=== PATIENT | female | born 1980 | race Hispanic/Latino ===

== ENCOUNTER 2017-07-21 17:11 | Emergency (ER) | payer MEDICAID, MEDICARE ==
[~2017-07-21] VITALS: Ht 160 cm; Wt 86.2 kg
[~2017-07-21 17:11] MED LIST: ACC200C PO; ACHD5005 PO; AGM875T PO; AMOX500C2 PO; CEFD300C3 PO; CEPH500C PO; CIPR500T78 PO; FLT05NA16 NSEACH; HCTZ12.5T PO; HYDR-3583 PO; HYDR1TAB PO; IBP800T PO; IBUP400T22 PO; IBUP50DR PO; IBUP800T26 PO; LISI20TA PO; LSNP20T PO; MELO-195 PO; METH4TAB PO; METO100T5 PO; METO50TA2 PO; MPR22T TP; NAPR-243 PO; OFLO5DRO6 OT; ONDA8TAB9 PO; Oxycodone Hcl/Acetaminophen PO; PHEN200T27 PO; PRM25T PO; SERT100T8 PO; SERT25TA PO; SMTR50T PO; SULF-222 PO; SULF1TAB38 PO; TRAM50TA2 PO; TRM50T PO; ZLP10T PO; ZLP5T PO; ZOLP10TA5 PO; zoloft PO
--- OUTSIDE RECORDS SUMMARY | 2017-07-21 17:18 | XMS REPORT | Continuity of Care Document ---
Author Author [facility] Organization [facility] Address [facility] [address] [place] [address] Phone Unavailable Support Name Relationship Address Phone AGA BLANC DO Caregiver [address] [place] [address] MYRNA GIL Next Of Kin [address] [place], [place] [id number] Insurance Providers Payer Name Policy Number Subscriber Name Relationship Medicare [id number] Susan Camacho 18 Self / Same As Patient Medicaid Other [id number] Susan Camacho 18 Self / Same As Patient Advance Directives Directive Response Recorded Date/Time Advance Directives No 10/10/16 9:49am Living Will No 10/10/16 9:49am Health Care Proxy No 10/10/16 9:49am Power of Printed Circuit Boards Laminator for Health Care No 10/10/16 9:49am Organ, Tissue, or Eye Donor No 10/10/16 9:48am Do you have a signed organ donor card? No 10/10/16 9:48am Chief Complaint and Reason for Visit Chief Complaint FOOT PROBLEM Reason for Visit [id number] Problems Active Problems Medical Problem Onset Date Status Foot contusion Unknown Acute Medications Current Home Medications Medication Dose Units Route Directions Days/Qty Instructions Start Date Meloxicam 15 Mg 15 Mg Oral Daily 5 10/10/16 Social History Social History Problem Response Recorded Date/Time Tobacco Use Denies Use 10/10/2016 9:16am Alcohol Use occasionally 10/10/2016 9:16am Drug Use none 10/10/2016 9:16am Hospital Discharge Instructions No hospital discharge instructions. Plan of Care Discharge Date 10/10/16 10:37am Condition at Discharge Improved Instructions/Education Provided Foot Contusion (ED) Prescriptions See Medication Section Referrals your provider - 2-3 Days Functional Status Query Response Date Recorded Bernard Coma Scale Total 15 October 10, 2016 9:00am Patient Behavior Crying October 10, 2016 9:00am Allergies, Adverse Reactions, Alerts Allergen Type Severity Reaction Status Last Updated Ondansetron Allergy Unknown Active 10/10/16 Immunizations Name Given Type Hx Influenza Vaccination No Historical Hx Pneumococcal Vaccination No Historical Vital Signs Acute Vital Signs Vital Response Date/Time Temperature (Fahrenheit) 99 degrees F (97.6 - 99.5) 10/10/2016 9:00am Temperature Source Temporal Artery 10/10/2016 9:00am Pulse Rate (adult) 120 bpm (60 - 90) 10/10/2016 9:00am Respiratory Rate 30 bpm (12 - 24) 10/10/2016 9:00am Blood Pressure 217/123 mm Hg 10/10/2016 9:00am O2 Sat by Pulse Oximetry 98 % (90 - 100) 10/10/2016 9:00am Oxygen Delivery Method 10/10/2016 9:00am Height 5 ft 5 in Weight 176 lb Body Mass Index 29.0 kg/m^2 Results No known relevant diagnostic tests, laboratory data and/or discharge summary. Procedures Procedure Status Date Provider(s) Foot Lt.4 Views(3OR More) Completed 10/10/16 AGA BLANC DO Encounters Encounter Location Arrival/Admit Date Discharge/Depart Date Attending Provider Departed Emergency Room [place] 10/10/16 8:57am 10/10/16 10:37am AGA BLANC DO Recent Diagnosis
--- OUTSIDE RECORDS SUMMARY | 2017-07-21 17:18 | XMS REPORT | Continuity of Care Document ---
Author Author [facility] Organization [facility] Address Unknown Phone Unavailable Allergies Active Description Code Type Severity Reaction Onset Reported/Identified Relationship to Patient Clinical Status Yes ondansetron HCl [id number] Drug Allergy Unknown N/A 02/20/2015 Medications Problems Date Dx Coded Attending Type Code Diagnosis Diagnosed By 03/13/2013 AROLDO BIANCHI MD Ot 041.11 03/13/2013 AROLDO BIANCHI MD Ot 305.1 03/13/2013 AROLDO BIANCHI MD Ot 401.9 03/13/2013 AROLDO BIANCHI MD Ot 682.3 04/08/2013 NAYE GONZALEZ DO Ot 682.3 04/12/2013 JANICE RODARTE MD Ot 041.12 04/12/2013 JANICE RODARTE MD Ot 682.3 05/04/2013 AROLDO BIANCHI MD Ot 682.3 06/25/2013 LENNOX KERN Ot 054.9 06/25/2013 LENNOX KERN Ot 522.5 06/25/2013 LENNOX KERN Ot 528.9 08/23/2013 JENISE ANDREWS, LAWRENCE Miller Ot 346.90 08/23/2013 JENISE ANDREWS, LAWRENCE T Ot 782.0 08/23/2013 LAWRENCE BURDEN MD T Ot 784.0 10/08/2013 ANALIA ANDREWS, CYNTHIA [place] Ot 041.12 10/08/2013 ANALIA ANDREWS, CYNTHIA [place] Ot 305.1 10/08/2013 ANALIA ANDREWS, CYNTHIA [place] Ot 346.90 10/08/2013 ANALIA ANDREWS, CYNTHIA [place] Ot 401.9 10/08/2013 ANALIA ANDREWS, CYNTHIA [place] Ot 682.0 10/08/2013 ANALIA ANDREWS, CYNTHIA [place] Ot 780.52 10/08/2013 ANALIA ANDREWS, CYNTHIA [place] Ot 965.09 10/08/2013 ANALIA ANDREWS, CYNTHIA D Ot E850.2 10/08/2013 ANALIA ANDREWS, CYNTHIA D Ot V04.81 10/08/2013 ANALIA ANDREWS, CYNTHIA D Ot V12.04 10/08/2013 ANALIA ANDREWS, CYNTHIA D Ot V43.64 11/23/2013 BRANDT BRIGGS MANAGER ENTERPRISE Ot 590.80 11/23/2013 BRANDT BRIGGS MANAGER ENTERPRISE Ot 724.2 01/12/2014 SILVANO VEE LENNOX L Ot 382.9 01/12/2014 TANIA KERNTCHEN L Ot 388.70 01/15/2014 LISA WILKS, NAYE K Ot 382.9 01/15/2014 LISA WILKS, NAYE K Ot 388.70 01/15/2014 LISA , NAYE K Ot 465.9 01/26/2014 EDGAR KERNEN L Ot 401.9 01/26/2014 EDGAR KERNEN L Ot 599.0 01/26/2014 EDGAR KERNEN L Ot 599.70 02/09/2014 LISA WILKS, NAYE K Ot 462 03/06/2014 AMIE ANDREWS, KAREN D Ot 305.1 03/06/2014 AMIE ANDREWS, KAREN D Ot 346.90 03/06/2014 AMIE ANDREWS, KAREN D Ot 401.9 03/06/2014 AMIE ANDREWS, KAREN D Ot 787.01 03/06/2014 AMIE ANDREWS, KAREN D Ot 787.91 04/08/2014 JENISE ANDREWS, LAWRENCE T Ot 305.1 04/08/2014 JENISE ANDREWS, LAWRENCE T Ot 346.90 04/08/2014 JENISE ANDREWS, LAWRENCE T Ot 463 02/22/2015 CAYDEN ANDREWS, WAI [place] Ot 041.3 02/22/2015 CAYDEN ANDREWS, WAI [place] Ot 305.90 02/22/2015 CAYDEN ANDREWS, WAI aMdera Ot 311 02/22/2015 CAYDEN ANDREWS, WAI [place] Ot 346.90 02/22/2015 WAI RODARTE MD Ot 401.9 02/22/2015 CAYDEN ANDREWS, WAI [place] Ot 571.8 02/22/2015 CAYDEN ANDREWS, WAI [place] Ot 590.10 02/22/2015 WIA RODARTE MD Ot 731.3 02/22/2015 WAI RODARTE MD Ot 733.40 02/22/2015 WAI RODARTE MD Ot 780.52 02/22/2015 WAI RODARTE MD Ot V12.04 02/22/2015 WAI RODARTE MD Ot V43.64 02/23/2015 LENNOX KERN Ot 788.0 RENAL COLIC 02/23/2015 LENNOX KERN Ot 789.00 ABDOMINAL PAIN, UNSPECIFIED SITE Procedures Results Encounters ACCT No. Visit Date/Time Discharge Status Pt. Type Provider Facility Loc./Unit Complaint [id number] 02/23/2015 12:33:00 2014 15:44:00 DIS Emergency LENNOX KERN [facility] ER LEFT SIDE PAIN [id number] 02/20/2015 20:38:00 2014 13:20:00 DIS Inpatient WAI RODARTE MD [facility] SURGICAL [id number] 04/08/2014 20:00:00 2013 21:28:00 DIS Emergency LAWRENCE BURDEN MD [facility] ER [id number] 03/06/2014 04:11:00 2013 06:07:00 DIS Emergency KAREN HOLLOWAY MD [facility] ER [id number] 02/09/2014 08:29:00 2013 09:35:00 DIS Emergency NAYE GONZALEZ DO [facility] ER [id number] 01/26/2014 17:28:00 2013 18:39:00 DIS Emergency LENNOX KERN [facility] ER [id number] 01/15/2014 10:28:00 2013 11:20:00 DIS Emergency NAYE GONZALEZ DO [facility] ER [id number] 01/12/2014 10:42:00 2013 11:58:00 DIS Emergency LENNOX KERN [facility] ER [id number] 11/23/2013 11:21:00 2013 12:41:00 DIS Emergency BRANDT BRIGGS APRN [facility] ER [id number] 10/06/2013 23:14:00 2013 13:38:00 DIS Inpatient ANALIA ANDREWS, CYNTHIA Mad[place] [address] [id number] 08/23/2013 01:29:00 2012 03:51:00 DIS Emergency JENISE ANDREWS, LAWRENCE Miller [facility] ER [id number] 06/25/2013 16:32:00 2012 19:14:00 DIS Emergency LENNOX KERN [facility] ER [id number] 05/04/2013 08:35:00 2012 09:09:00 DIS Outpatient TASH ANDREWS, AROLDO Sauceda [facility] WOUNDCARE [id number] 04/12/2013 04:35:00 2012 05:07:00 DIS Emergency JANICE RODARTE MD [facility] ER [id number] 04/08/2013 10:06:00 2012 12:16:00 DIS Emergency LISA DONAYE K [facility] ER [id number] 03/05/2013 22:25:00 2012 19:05:00 DIS Inpatient AROLDO BIANCHI MD [facility] [address] [id number] 07/21/2017 17:14:00 ACT Emergency LISA DO, NAYE K [facility] ER SURGICAL WOUND PROBLEMS
[2017-07-21] MEDS ORDERED: HYDROcodone/APAP 7.5 MG/325 MG (LORTAB, LORCET PLUS) TABLET PO STA (18:24)
[2017-07-21] MEDS ORDERED: RX-HYDROCODONE/APAP 5/325 MG #4 TAB PK PO PRN (18:30)
--- NOTE | 2017-07-21 18:31 | ED General ---
General Chief Complaint: Skin/Wound Problems Stated Complaint: SURGICAL WOUND PROBLEMS Nursing Triage Note: PT HAS HX OF MRSA, MULTIPLE ABSCESSES THAT HAVE BEEN I&D'D, 2 ON RT FACE, ONE ON LT SIDE UNDER ARM. PT HERE FOR FEVER AND PACKING FELL OUT OF ONE ON HER FACE. Nursing Sepsis Screen: Possible Sepsis Risk Source of Information: Patient Exam Limitations: No Limitations History of Present Illness Time Seen by Provider: 18:18 Initial Comments Here with concerns related to packing on the I&D that was performed to the right side of her face has fallen out. She is concerned that stuck in his clinic get up in the wound. Had an I&D done to the left axilla as well and there is another one above the wound on the right face that has had recent I&D as well. Most recent I&D was this morning early. Patient was given pain prescription but has been unable to fill it because all the pharmacies are closed due to holiday. Complains of pain and has worse related to infection. Currently she is on doxycycline. Timing/Duration: 1-3 Hours Severity: Moderate Associated Systoms: Fever/Chills (has history of this but none currently), No Nausea/Vomiting, No Shortness of Air Allergies and Home Medications Allergies Coded Allergies: ondansetron HCl (Verified Allergy, Unknown, 02/20/15) HIVES/ ITCHING Home Medications Cephalexin Monohydrate 500 Mg Capsule, 1 EACH PO TID, #15 Ref 0 Prescribed by: LENNOX SCHAEFER on 02/23/15 1517 Ibuprofen 800 Mg Tablet, 800 MG PO BID PRN for PAIN, (Reported) Lisinopril 20 Mg Tab, 20 MG PO DAILY, (Reported) Metoprolol Tartrate 50 Mg Tablet, 50 MG PO DAILY, #30 (Reported) Phenazopyridine Hcl 200 Mg Tablet, 1 EACH PO TID PRN for PAIN, #15 Ref 0 Prescribed by: LENNOX SCHAEFER on 02/23/15 1517 Promethazine Hcl 25 Mg Tab, 1 TAB PO QID PRN for NAUSEA/VOMITING, #30 Prescribed by: CEZAR DURAND on 02/22/15 1140 Sertraline Hcl 100 Mg Tablet, 100 MG PO DAILY, #30 (Reported) Sumatriptan Succinate 50 Mg Tablet, 50 MG PO PRN PRN for HEADACHE, #4 Prescribed by: SIMA LOPEZ on 10/08/13 1251 Zolpidem Tartrate 10 Mg Tablet, 10 MG PO HS, #30 (Reported) [Oxycodone Hcl/Acetaminophen] 1 TAB TABLET, 1 TAB PO Q4H PRN for PAIN, #4 Prescribed by: CEZAR DURAND on 02/22/15 1140 Constitutional: see HPI Respiratory: no symptoms reported Cardiovascular: no symptoms reported Gastrointestinal: no symptoms reported Skin: see HPI, lesions (multiple lesions that are apparently MRSA in various stages of healing or treatment.) Psychiatric/Neurological: Anxiety, Denies Weakness Past Qmyrtvx-Aeqkli-Adyxvh Hx Patient Social History Alcohol Use: Rarely Uses Alcohol Beverage of Choice: Beer Recreational Drug Use: Yes (CLEAN FOR 4-5 YRS, HX OF IV METH) Smoking Status: Current Everyday Smoker Type Used: Cigarettes Recent Foreign Travel: No Contact w/Someone Who Travel: No Recent Infectious Disease Expo: No Recent Hopitalizations: No Immunizations Up To Date Tetanus Booster (TDap): Less than 5yrs PED Vaccines UTD: Yes Date of Influenza Vaccine: Oct 08, 2013 Seasonal Allergies Seasonal Allergies: No Surgeries History of Surgeries: Yes (I&D OF LEFT AXILLARY ABSCESS BILAT HIP) Surgeries: Gallbladder, Orthopedic, Tonsillectomy, Tubal Ligation Respiratory History of Respiratory Disorde: No Cardiovascular History of Cardiac Disorders: Yes Cardiac Disorders: Hypertension Neurological History of Neurological Disord: No Reproductive System Hx Reproductive Disorders: No Sexually Transmitted Disease: No HIV/AIDS: No Female Reproductive Disorders: 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 Genitourinary History of Genitourinary Disor: No Genitourinary Disorders: Kidney Infection Gastrointestinal History of Gastrointestinal Di: Yes (HEPATITIS A A CHILD) Gastrointestinal Disorders: Diverticulosis, Gall Bladder Disease Musculoskeletal History of Musculoskeletal Dis: Yes (AVASCULAR NECROSIS OF BOTH HIPS, chronic left hip pain, BILAT HIP REPLACED) Musculoskeletal Disorders: Fractures Endocrine History of Endocrine Disorders: No (BORDERLINE DIABETIC) Cancer History of Cancer: No Psychosocial History of Psychiatric Problem: Yes Behavioral Health Disorders: Anxiety, Depression Integumentary History of Skin or Integumenta: Yes (ABSCESS-MRSA) Blood Transfusions History of Blood Disorders: No Adverse Reaction to a Blood Tr: No Reviewed Nursing Assessment Reviewed/Agree w Nursing PMH: Yes Family Medical History Significant Family History: No Pertinent Family Hx Family Medial History: Alcoholism 03 FATHER, Onset:Unknown Cancer 03 FATHER, Onset:50's - 60 03 MOTHER, Onset:Unknown Family history: Hypertension 03 MOTHER, Onset:40's - 50 Physical Exam Vital Signs Vital Sign - Last 12Hours 07/21/17 17:44 Temp 97.1 Pulse 91 Resp 20 B/P (MAP) 139/103 Pulse Ox 97 O2 Delivery Room Air Capillary Refill : Less Than 3 Seconds General Appearance: WD/WN, Mild Distress (anxious) Neck: Non Tender, Supple Respiratory: Lungs Clear, Normal Breath Sounds Cardiovascular: Regular Rate, Rhythm, No Murmur Neurologic/Psychiatric: Alert, Oriented x3 Skin: Normal Color, Warm/Dry, Other (packed lesion to the right side of the face near the ear. Another lesion distal just distal to the angle of the jaw on the right side of the face that packing has fallen out. Surrounding skin without significant erythema and there is no significant drainage currently. There is another lesion to the left axilla that is covered with a Band-Aid.) Progress/Results/Core Measures Suspected Sepsis Recent Fever Within 48 Hours: Yes Infection Criteria Present: Documented Infection New/Unexplained Altered Menta: No Sepsis Screen: Possible Sepsis Risk Sepsis Diagnosis: SIRS Temperature:97.1 Pulse: 91 Respiratory Rate: 20 Blood Pressure 139 /103 Mean: 115 Results/Orders My Orders Orders - KAREN HOLLOWAY MD Hydrocodone/Apap 7.5/325 Tab (Lortab 7. (07/21/17 18:24) Rx-Hydrocodone/Apap 5-325 Mg (Rx-Vicodin (07/21/17 18:30) Vital Signs/I&O Vital Sign - Last 12Hours 07/21/17 17:44 Temp 97.1 Pulse 91 Resp 20 B/P (MAP) 139/103 Pulse Ox 97 O2 Delivery Room Air Capillary Refill : Less Than 3 Seconds Blood Pressure Mean: 115 Progress Note : Progress Note Seen and evaluated. Wounds evaluated. She has cleaning solution. Syringe was given to flush the open wound. She will continue to wash and cover and instructions were given to her by me. She has antibiotics. Hydrocodone 7.5 one tab by mouth given. Discharged home with hydrocodone go pack. She has prescription to fill pharmacies open tomorrow. Discharged home with return precautions. Patient verbalize understanding instructions and agreement with plan. Departure Impression Impression: Primary Impression: Abscess of skin Qualified Codes: L02.01 - Cutaneous abscess of face Disposition: HOME, SELF-CARE Condition: Stable Departure-Patient Inst. Decision time for Depature: 18:33 Referrals: NO,LOCAL PHYSICIAN (PCP/Family) Primary Care Physician Patient Instructions: Skin Abscess Add. Discharge Instructions: All discharge instructions reviewed with patient and/or family. Voiced understanding. You may gently wash the wounds with soap that was provided by the other provider. Rinse with fresh water. You may gently rinse of the wound that the packing fell out of a few times daily with fresh water using the syringe given. You do not have to press the syringe into the wound just spray externally. You may cover with gauze. Return for worse pain, fever, vomiting, weakness, breathing problems or other concerns as needed. Follow-up with your that did the incision and drainages as previously directed. KAREN HOLLOWAY MD Jul 21, 2017 18:31
[2017-07-21 18:38] VITALS: BP 139/103
== END 2017-07-21 18:38 | disposition home or self-care (01) ==
LOC: EDUNIT# 17:11 → ER 17:14
DX: L02.01 Cutaneous abscess of face (principal); I10 Essential (primary) hypertension; F41.9 Anxiety disorder, unspecified; F32.9 Major depressive disorder, single episode, unspecified; F17.210 Nicotine dependence, cigarettes, uncomplicated; Z86.14 Personal history of Methicillin resistant Staphylococcus aureus infection; Z87.448 Personal history of other diseases of urinary system; Z90.89 Acquired absence of other organs; Z96.643 Presence of artificial hip joint, bilateral; Z87.19 Personal history of other diseases of the digestive system; Z98.51 Tubal ligation status
CPT/HCPCS: 99283

== ENCOUNTER → 2018-11-16 | Outpatient (CLI) | payer MEDICARE, MEDICAID ==
--- NOTE | 2018-11-16 10:59 | Diagnostic Imaging Report ---
Indication: Right hip pain 2 views of right hip show postop changes from right hip arthroplasty. There is no evidence of loosening or acute fracture. There is no displacement. Impression: Postop changes from right hip arthroplasty. No acute abnormalities seen. Dictated by: Dictated on workstation # [id number]
--- NOTE | 2018-11-16 11:00 | Diagnostic Imaging Report ---
INDICATION: Fall, bilateral hip pain FINDINGS: Left hip prosthesis is intact. No fracture or acute pathology. This chronic bony proliferations about the postsurgical proximal femur. IMPRESSION: No acute appearing abnormality. Dictated by: Dictated on workstation # [id number]
== END ==
LOC: RAD FS 10:36
PROVIDERS: ATTEND Nurse Practitioner
DX: M25.551 Pain in right hip (principal); M25.552 Pain in left hip; Z96.643 Presence of artificial hip joint, bilateral
CPT/HCPCS: 73502

== ENCOUNTER 2018-11-21 10:27 | Emergency (ER) | payer MEDICAID, MEDICARE ==
[~2018-11-21] VITALS: Ht 152.4 cm; Wt 81.6 kg
[2018-11-21] MEDS ORDERED: TRIM/SULFAMETH 160/800 (SEPTRA DS) TAB PO ONE (10:45)
[2018-11-21] MEDS ORDERED: IBUPROFEN 800 MG (MOTRIN) TAB PO ONE (10:45)
[2018-11-21] MEDS ORDERED: HYDROcodone/APAP 7.5 MG/325 MG (LORTAB, LORCET PLUS) TABLET PO ONE (10:45)
[2018-11-21] MEDS ORDERED: SULF1TAB35 PO (10:48)
[2018-11-21] MEDS ORDERED: HYDR-4227 PO (10:48)
[2018-11-21] MEDS ORDERED: IBUP-1780 PO (10:48)
[2018-11-21] MEDS ORDERED: DOXY100T2 PO (10:48)
--- NOTE | 2018-11-21 10:57 | ED General ---
General Stated Complaint: ABSCESS History of Present Illness Date Seen by Provider: Nov 21, 2018 Time Seen by Provider: 10:45 Initial Comments Patient is a 38-year-old female who presents to the emergency department today complaining of pain and swelling over the left side of her face. Symptoms have been present over the last 24 hours and worsening. The patient has a prior history of MRSA skin infections and has required incision and drainage in the past. No fever or chills. No additional complaints. She was a baseline health until onset of symptoms. Allergies and Home Medications Allergies Coded Allergies: ondansetron HCl (Verified Allergy, Unknown, 02/20/15) HIVES/ ITCHING Home Medications Cephalexin Monohydrate 500 Mg Capsule, 1 EACH PO TID Prescribed by: LENNOX SCHAEFER on 02/23/15 1517 Doxycycline Hyclate 100 Mg Tablet, 100 MG PO BID Prescribed by: STEPHY BLOUNT on 11/21/18 1048 Hydrocodone/Acetaminophen 1 Each Tablet, 1 TAB PO Q4H Prescribed by: STEPHY BLOUNT on 11/21/18 1048 Ibuprofen 800 Mg Tablet, 800 MG PO BID PRN for PAIN, (Reported) Ibuprofen 800 Mg Tablet, 800 MG PO Q8H PRN for PAIN Prescribed by: STEPHY BLOUNT on 11/21/18 1048 Lisinopril 20 Mg Tab, 20 MG PO DAILY, (Reported) Metoprolol Tartrate 50 Mg Tablet, 50 MG PO DAILY, (Reported) Phenazopyridine Hcl 200 Mg Tablet, 1 EACH PO TID PRN for PAIN Prescribed by: LENNOX SCHAEFER on 02/23/15 1517 Promethazine Hcl 25 Mg Tab, 1 TAB PO QID PRN for NAUSEA/VOMITING Prescribed by: CEZAR DURAND on 02/22/15 1140 Sertraline Hcl 100 Mg Tablet, 100 MG PO DAILY, (Reported) Sulfamethoxazole/Trimethoprim 1 Each Tablet, 1 EACH PO BID Prescribed by: STEPHY BLOUNT on 11/21/18 1048 Sumatriptan Succinate 50 Mg Tablet, 50 MG PO PRN PRN for HEADACHE Prescribed by: SIMA LOPEZ on 10/08/13 1251 Zolpidem Tartrate 10 Mg Tablet, 10 MG PO HS, (Reported) [Oxycodone Hcl/Acetaminophen] 1 TAB TABLET, 1 TAB PO Q4H PRN for PAIN Prescribed by: CEZAR DURAND on 02/22/15 1140 Patient Home Medication List Home Medication List Reviewed: Yes Review of Systems Review of Systems Constitutional: no symptoms reported EENTM: see HPI Respiratory: no symptoms reported Cardiovascular: no symptoms reported Gastrointestinal: no symptoms reported Genitourinary: no symptoms reported Skin: no symptoms reported Past Algjaqc-Perizr-Qibbnt Hx Patient Social History Alcohol Beverage of Choice: Beer Type Used: Cigarettes Recent Hopitalizations: No Immunizations Up To Date Tetanus Booster (TDap): Less than 5yrs PED Vaccines UTD: Yes Date of Influenza Vaccine: Oct 08, 2013 Seasonal Allergies Seasonal Allergies: No Past Medical History Surgeries: Yes (I&D OF LEFT AXILLARY ABSCESS BILAT HIP) Gallbladder, Orthopedic, Tonsillectomy, Tubal Ligation Respiratory: No Cardiac: Yes Hypertension Neurological: No Reproductive Disorders: No Female Reproductive Disorders: Denies 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 Sexually Transmitted Disease: No HIV/AIDS: No Genitourinary: No Kidney Infection Gastrointestinal: Yes (HEPATITIS A A CHILD) Diverticulosis, Gall Bladder Disease Musculoskeletal: Yes (AVASCULAR NECROSIS OF BOTH HIPS, chronic left hip pain, BILAT HIP REPLACED) Fractures Endocrine: No (BORDERLINE DIABETIC) Cancer: No Psychosocial: Yes Anxiety, Depression Integumentary: Yes (ABSCESS-MRSA) Blood Disorders: No Adverse Reaction/Blood Tranf: No Family Medical History Alcoholism 03 FATHER, Onset:Unknown Cancer 03 FATHER, Onset:50's - 60 03 MOTHER, Onset:Unknown Family history: Hypertension 03 MOTHER, Onset:40's - 50 No Pertinent Family Hx Physical Exam Vital Signs Capillary Refill : Height, Weight, BMI Height: 5'3" Weight: 190lbs. 0.0oz. 86.562454wv; 32.77 BMI Method:Estimated General Appearance: No Apparent Distress, WD/WN Eyes: Bilateral Eye Normal Inspection, Bilateral Eye PERRL HEENT: PERRL/EOMI, Normal ENT Inspection, Pharynx Normal, Other (pustule over the left zygoma with approximately 2-3 cm area of induration and erythema. No palpable fluctuant or fluid collection is appreciated.) Extremity: Normal Capillary Refill Neurologic/Psychiatric: Alert, Oriented x3 Skin: Normal Color, Warm/Dry Progress/Results/Core Measures Suspected Sepsis SIRS Temperature: Pulse: Respiratory Rate: Blood Pressure / Mean: Results/Orders My Orders Orders - STEPHY BLOUNT DO Ibuprofen Tablet (Motrin Tablet) (11/21/18 10:45) Hydrocodone/Apap 7.5/325 Tab (Lortab 7. (11/21/18 10:45) Sulfamethoxazole/Trimet Ds Tab (Bactrim (11/21/18 10:45) Vital Signs/I&O Capillary Refill : Progress Note : Progress Note Patient is evaluated in the emergency department for cellulitis over the left zygoma. Bedside ultrasound was performed to ensure that no fluid collection was present in the skin. There were no pockets of fluid seen on bedside ultrasound. Patient has a prior history of known MRSA. Because of this, she is treated with Bactrim. Because the lesions on her face, the patient will be double covered for strep as well. She is discharged home on Bactrim and Doxy. She is given ibuprofen 800 mg as well as [place] 7.5 for pain control at home. Advised follow- up with primary care doctor. Return to the ER if her symptoms are not improving. Departure Impression Primary Impression: Cellulitis diffuse, face Disposition: 01 HOME, SELF-CARE Condition: Improved Departure-Patient Inst. Patient Instructions: Cellulitis (Skin Infection), Adult (DC) Scripts Ibuprofen (Ibuprofen) 800 Mg Tablet 800 MG PO Q8H PRN for PAIN, #30 TAB 0 Refills Prov: STEPHY BLOUNT DO 11/21/18 Hydrocodone/Acetaminophen ([place] 7.5-325 Tablet) 1 Each Tablet 1 TAB PO Q4H for PAIN-MODERATE MDD 6 TABS, #20 TAB Prov: STEPHY BLOUNT DO 11/21/18 Doxycycline Hyclate (Doxycycline Hyclate) 100 Mg Tablet 100 MG PO BID, #20 TAB 0 Refills Prov: STEPHY BLOUNT DO 11/21/18 Sulfamethoxazole/Trimethoprim (Bactrim Ds Tablet) 1 Each Tablet 1 EACH PO BID, #20 TAB Prov: STEPHY BLOUNT DO 11/21/18 STEPHY BLOUNT DO Nov 21, 2018 10:57
[2018-11-21 11:10] VITALS: BP 110/67
== END 2018-11-21 11:10 | disposition home or self-care (01) ==
LOC: EDUNIT# 10:27 → ER FS 10:29
DX: L03.211 Cellulitis of face (principal); I10 Essential (primary) hypertension; R73.03 Prediabetes; F41.9 Anxiety disorder, unspecified; F32.9 Major depressive disorder, single episode, unspecified; Z88.8 Allergy status to other drugs, medicaments and biological substances; Z90.89 Acquired absence of other organs; Z98.51 Tubal ligation status; Z87.19 Personal history of other diseases of the digestive system

== ENCOUNTER 2018-11-22 10:39 | Emergency (ER) | payer MEDICARE ==
[~2018-11-22] VITALS: Ht 152.4 cm; Wt 81.6 kg
[~2018-11-22 10:39] MED LIST changes: +DOXY100T2 PO; +HYDR-4227 PO; +IBUP-1780 PO; +SULF1TAB35 PO
--- NOTE | 2018-11-22 11:03 | ED Integumentary General ---
General Chief Complaint: Skin/Wound Problems Stated Complaint: ABSCESS Nursing Triage Note: was seen yesterday in ED and prescribed antibiotics for abscess on left cheek. States it is worse today and is now reddened under eye and is making her eye water. Rates pain at 10/10. Took a hydro at 0500 this morning. History of Present Illness Date Seen by Provider: Nov 22, 2018 Time Seen by Provider: 10:45 Initial Comments 38 yo f with cc of facial infection on abx but swelling increasing. feels like the lower lid is starting to swell tearing some "i can taste it in my mouth" no fever Allergies and Home Medications Allergies Coded Allergies: ondansetron HCl (Verified Allergy, Unknown, 02/20/15) HIVES/ ITCHING Home Medications Cephalexin Monohydrate 500 Mg Capsule, 1 EACH PO TID Prescribed by: LENNOX SCHAEFER on 02/23/15 1517 Doxycycline Hyclate 100 Mg Tablet, 100 MG PO BID Prescribed by: STEPHY BLOUNT on 11/21/18 1048 Hydrocodone/Acetaminophen 1 Each Tablet, 1 TAB PO Q4H Prescribed by: STEPHY BLOUNT on 11/21/18 1048 Ibuprofen 800 Mg Tablet, 800 MG PO BID PRN for PAIN, (Reported) Ibuprofen 800 Mg Tablet, 800 MG PO Q8H PRN for PAIN Prescribed by: STEPHY BLOUNT on 11/21/18 1048 Lisinopril 20 Mg Tab, 20 MG PO DAILY, (Reported) Metoprolol Tartrate 50 Mg Tablet, 50 MG PO DAILY, (Reported) Phenazopyridine Hcl 200 Mg Tablet, 1 EACH PO TID PRN for PAIN Prescribed by: LENNOX SCHAEFER on 02/23/15 1517 Promethazine Hcl 25 Mg Tab, 1 TAB PO QID PRN for NAUSEA/VOMITING Prescribed by: CEZAR DURAND on 02/22/15 1140 Sertraline Hcl 100 Mg Tablet, 100 MG PO DAILY, (Reported) Sulfamethoxazole/Trimethoprim 1 Each Tablet, 1 EACH PO BID Prescribed by: STEPHY BLOUNT on 11/21/18 1048 Sumatriptan Succinate 50 Mg Tablet, 50 MG PO PRN PRN for HEADACHE Prescribed by: SIMA LOPEZ on 10/08/13 1251 Zolpidem Tartrate 10 Mg Tablet, 10 MG PO HS, (Reported) [Oxycodone Hcl/Acetaminophen] 1 TAB TABLET, 1 TAB PO Q4H PRN for PAIN Prescribed by: CEZAR DURAND on 02/22/15 1140 Patient Home Medication List Home Medication List Reviewed: Yes Review of Systems Review of Systems Constitutional: see HPI; No fever Past Lmrkcmb-Plnalu-Ujolrg Hx Patient Social History Alcohol Use: Denies Use Number of Drinks Today: AA Alcohol Beverage of Choice: Beer Recreational Drug Use: No Type Used: Cigarettes 2nd Hand Smoke Exposure: Yes Recent Foreign Travel: No Contact w/Someone Who Travel: No Recent Infectious Disease Expo: No Recent Hopitalizations: No Physical Abuse: No Sexual Abuse: No Mistreated: No Fear: No Immunizations Up To Date Tetanus Booster (TDap): Less than 5yrs PED Vaccines UTD: Yes Date of Influenza Vaccine: Oct 08, 2013 Seasonal Allergies Seasonal Allergies: No Past Medical History Surgeries: Yes (bilateral hip surgery) Gallbladder, Tubal Ligation Respiratory: No Cardiac: Yes Hypertension Neurological: No Reproductive Disorders: No Female Reproductive Disorders: Denies 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 Sexually Transmitted Disease: No HIV/AIDS: No Genitourinary: No Kidney Infection Gastrointestinal: No Diverticulosis, Gall Bladder Disease Musculoskeletal: Yes (bilateral hip surgery- avascular necrosis) Fractures Endocrine: No HEENT: No Cancer: No Psychosocial: No Anxiety, Depression Integumentary: Yes (Hx of MRSA abscess) Blood Disorders: No Adverse Reaction/Blood Tranf: No Family Medical History Alcoholism 03 FATHER, Onset:Unknown Cancer 03 FATHER, Onset:50's - 60 03 MOTHER, Onset:Unknown Family history: Hypertension 03 MOTHER, Onset:40's - 50 No Pertinent Family Hx Physical Exam Vital Signs Vital Signs - First Documented 11/22/18 10:49 Temp 98.3 Pulse 81 Resp 18 B/P (MAP) 128/99 (109) Pulse Ox 100 Capillary Refill : Less Than 3 Seconds General Appearance: no apparent distress HEENT: other (there is induration and a sal noted left cheek area, some mild fluctuance possible (sal new today per patient)) Respiratory: no respiratory distress, no accessory muscle use Extremities: normal range of motion, normal inspection Neurologic/Psychiatric: no motor/sensory deficits, alert Skin: other (see above. 1 cm fluctuance 4 by 3 cm aarea of erythema) Procedures/Interventions I&D : Blade Size: 11 I & D Procedure: betadine prep Progress verbal consent obtained lido with epi for anest im morphine and clinda given 0.5 cm incision made and pus drained approx 1 ml with some blood from the area. 1 cm fluctuance 4 by 3 cm aarea of erythema Progress/Results/Core Measures Results/Orders My Orders Orders - JOHN GARCIA MD Clindamycin Injection (Cleocin Injection (11/22/18 11:15) Morphine Pf Inj (Duramorph Pf Inj) (11/22/18 11:15) Lidocaine/Epi 1% 1:100,000 (Xylocaine /E (11/22/18 11:15) Morphine Injection (Morphine Injection (11/22/18 11:08) Clindamycin Injection (Cleocin Injection (11/22/18 11:08) Lidocaine/Epi 2% 1:100,000 (Xylocaine/Ep (11/22/18 11:08) Morphine Injection (Morphine Injection (11/22/18 11:21) Medications Given in ED Current Medications Medications Dose Ordered Sig/Amelie Route Start Time Stop Time Status Last Admin Dose Admin Clindamycin Phosphate 600 mg ONCE ONCE IM 11/22/18 11:15 11/22/18 11:16 DC 11/22/18 11:17 600 MG Vital Signs/I&O 11/22/18 10:49 Temp 98.3 Pulse 81 Resp 18 B/P (MAP) 128/99 (109) Pulse Ox 100 Blood Pressure Mean: 109 Progress Progress Note : Progress Note cellulitis likely early abscess. small amount of pus imi abx continue treatment regimen return prec discussed Departure Impression Primary Impression: Abscess Additional Impression: Cellulitis Disposition: 01 HOME, SELF-CARE Condition: Improved Departure-Patient Inst. Referrals: CARLOS MANUEL ARORA MD (PCP/Family) Primary Care Physician Patient Instructions: Abscess Incision and Drainage (DC) JOHN GARCIA MD Nov 22, 2018 11:03
[2018-11-22] MEDS ORDERED: CLINDAMYCIN 300 MG/2ML (CLEOCIN) VIAL ONE (11:08)
[2018-11-22] MEDS ORDERED: LIDOCAINE/EPI 2% 1:100,00 (XYLOCAINE) 20 ML VIAL ONE (11:08)
[2018-11-22] MEDS ORDERED: morphine INJ 10 MG/ML 1ML (SYR OR VIAL) ONE (11:08)
[2018-11-22] MEDS ORDERED: LIDOCAINE/EPI 1%-1:100,000 (XYLOCAINE) 20ML INJ ONE (11:15)
[2018-11-22] MEDS ORDERED: CLINDAMYCIN 600 MG/4ML (CLEOCIN) VIAL IM ONE (11:15)
[2018-11-22] MEDS ORDERED: morphine PF (DURAMORPH) 10 MG/10 ML AMP IM ONE (11:15)
[2018-11-22] MEDS ORDERED: morphine INJ 10 MG/ML 1ML (SYR OR VIAL) IM STA (11:21)
[2018-11-22 11:58] VITALS: BP 120/93
== END 2018-11-22 12:00 | disposition home or self-care (01) ==
LOC: EDUNIT# 10:39 → ER FS 10:41
DX: L02.01 Cutaneous abscess of face (principal); L03.211 Cellulitis of face; I10 Essential (primary) hypertension; F41.9 Anxiety disorder, unspecified; F32.9 Major depressive disorder, single episode, unspecified; Z87.19 Personal history of other diseases of the digestive system; Z88.8 Allergy status to other drugs, medicaments and biological substances; Z77.22 Contact with and (suspected) exposure to environmental tobacco smoke (acute) (chronic); Z98.51 Tubal ligation status
CPT/HCPCS: 99284

== ENCOUNTER 2019-03-12 08:53 | Emergency (ER) | payer MEDICARE ==
[~2019-03-12] VITALS: Ht 152.4 cm; Wt 81.6 kg
[2019-03-12] MEDS ORDERED: NS IV 1000 ML 1,000 ML IV SCH (09:30)
[2019-03-12] MEDS ORDERED: fentaNYL INJECTION 100 MCG/2 ML AMP IVP ONE (09:30)
[2019-03-12] MEDS ORDERED: PROMETHAZINE INJ 25 MG/ML (PHENERGAN) AMP IVP ONE (09:30)
--- NOTE | 2019-03-12 09:36 | ED GI ---
General Chief Complaint: Abdominal/GI Problems Stated Complaint: N/V/D Nursing Triage Note: PT STATES NVD FOR ABOUT 3 DAYS, 1 OXY TAKEN LAST NIGHT ABOUT 2330. STATES FEVER BUT 98.5 AT TRIAGE. HX OF UTI'S. ABD PAIN AND LOW BACK PAIN. Sepsis Screen: Possible Sepsis Risk Source of Information: Patient Exam Limitations: No Limitations History of Present Illness Date Seen by Provider: Mar 12, 2019 Time Seen by Provider: 09:32 Initial Comments This 38-year-old white female presents with a complaint of nausea vomiting diarrhea for the last 3 days. The patient has had similar abdominal pain from diverticulitis. Patient is also experiencing a history of recent heavy menstrual bleeding from her expected menses. The patient was noted to have a low-grade fever in triage. Patient's abdominal pain which is sharp in nature and severe in intensity and radiates into her low back. Patient's past medical history in addition to diverticulitis includes multiple hip surgeries. Allergies and Home Medications Allergies Coded Allergies: ondansetron HCl (Verified Allergy, Unknown, 02/20/15) HIVES/ ITCHING Home Medications Cephalexin Monohydrate 500 Mg Capsule, 1 EACH PO TID Prescribed by: LENNOX SCHAEFER on 02/23/15 1517 Doxycycline Hyclate 100 Mg Tablet, 100 MG PO BID Prescribed by: STEPHY BLOUNT on 11/21/18 1048 Hydrocodone/Acetaminophen 1 Each Tablet, 1 TAB PO Q4H Prescribed by: STEPHY BLOUNT on 11/21/18 1048 Ibuprofen 800 Mg Tablet, 800 MG PO BID PRN for PAIN, (Reported) Ibuprofen 800 Mg Tablet, 800 MG PO Q8H PRN for PAIN Prescribed by: STEPHY BLOUNT on 11/21/18 1048 Lisinopril 20 Mg Tab, 20 MG PO DAILY, (Reported) Metoprolol Tartrate 50 Mg Tablet, 50 MG PO DAILY, (Reported) Phenazopyridine Hcl 200 Mg Tablet, 1 EACH PO TID PRN for PAIN Prescribed by: LENNOX SCHAEFER on 02/23/15 1517 Promethazine Hcl 25 Mg Tab, 1 TAB PO QID PRN for NAUSEA/VOMITING Prescribed by: CEZAR DURAND on 02/22/15 1140 Sertraline Hcl 100 Mg Tablet, 100 MG PO DAILY, (Reported) Sulfamethoxazole/Trimethoprim 1 Each Tablet, 1 EACH PO BID Prescribed by: STEPHY BLOUNT on 11/21/18 1048 Sumatriptan Succinate 50 Mg Tablet, 50 MG PO PRN PRN for HEADACHE Prescribed by: SIMA LOPEZ on 10/08/13 1251 Zolpidem Tartrate 10 Mg Tablet, 10 MG PO HS, (Reported) [Oxycodone Hcl/Acetaminophen] 1 TAB TABLET, 1 TAB PO Q4H PRN for PAIN Prescribed by: CEZAR DURAND on 02/22/15 1140 Patient Home Medication List Home Medication List Reviewed: Yes Review of Systems Review of Systems Constitutional: No chills; fever EENTM: No Symptoms Reported Respiratory: Denies Cough, Denies SOA at Rest Cardiovascular: Denies Chest Pain Gastrointestinal: See HPI, Abdominal Pain, Diarrhea, Nausea; Denies Rectal Bleeding; Vomiting Genitourinary: Denies Burning, Denies Frequency, Denies Flank Pain Musculoskeletal: no symptoms reported Skin: No change in color, No rash Psychiatric/Neurological: No Symptoms Reported Endocrine: No Symptoms Reported Hematologic/Lymphatic: No Symptoms Reported Past Fbpklzm-Vdncrr-Fxkzjh Hx Past Med/Social Hx: Reviewed Nursing Past Med/Soc Hx Patient Social History Alcohol Use: Occasionally Uses Number of Drinks Today: AA Alcohol Beverage of Choice: Beer 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) Smoking Status: Current Everyday Smoker Type Used: Cigarettes 2nd Hand Smoke Exposure: Yes Recent Foreign Travel: No Contact w/Someone Who Travel: No Recent Infectious Disease Expo: No Recent Hopitalizations: No Immunizations Up To Date Tetanus Booster (TDap): Less than 5yrs PED Vaccines UTD: Yes Date of Influenza Vaccine: Oct 08, 2013 Seasonal Allergies Seasonal Allergies: Yes Past Medical History Surgeries: Yes (bilateral hip surgery) Gallbladder, Orthopedic, Tonsillectomy, Tubal Ligation Respiratory: No Cardiac: Yes Hypertension Neurological: No : No Last Menstrual Period: Mar 10, 2019 Reproductive Disorders: No Female Reproductive Disorders: Denies 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 Sexually Transmitted Disease: No HIV/AIDS: No Genitourinary: Yes Kidney Infection, UTI-Chronic Gastrointestinal: Yes Diverticulosis, Gall Bladder Disease Musculoskeletal: Yes (bilateral hip surgery- avascular necrosis) Fractures Endocrine: No HEENT: No Cancer: No Psychosocial: Yes Anxiety, Depression Integumentary: Yes (Hx of MRSA abscess) Blood Disorders: No Adverse Reaction/Blood Tranf: No Family Medical History Alcoholism 03 FATHER, Onset:Unknown Cancer 03 FATHER, Onset:50's - 60 03 MOTHER, Onset:Unknown Family history: Hypertension 03 MOTHER, Onset:40's - 50 No Pertinent Family Hx Physical Exam Vital Signs Vital Signs - First Documented 03/12/19 09:11 Temp 98.5 Pulse 90 Resp 22 B/P (MAP) 159/120 (133) Pulse Ox 99 O2 Delivery Room Air Capillary Refill : Less Than 3 Seconds Height/Weight/BMI Height: 5'0" Weight: 180lbs. 0.0oz. 81.850656cw; 32.77 BMI Method:Stated General Appearance: WD/WN, mild distress HEENT: normal ENT inspection Neck: full range of motion, normal inspection Respiratory: chest non-tender, lungs clear, normal breath sounds Cardiovascular: regular rate, rhythm, no murmur Gastrointestinal: normal bowel sounds; No guarding, No rebound; tenderness (diffuse tenderness on palpation.) Extremities: normal range of motion, normal inspection Back: normal inspection Neurologic/Psychiatric: no motor/sensory deficits, alert, normal mood/affect, oriented x 3 Skin: normal color, warm/dry Progress/Results/Core Measures Results/Orders Lab Results Laboratory Tests Test 03/12/19 10:00 Range/Units White Blood Count 11.3 H 4.3-11.0 10^3/uL Red Blood Count 5.24 4.35-5.85 10^6/uL Hemoglobin 15.6 11.5-16.0 G/DL Hematocrit 47 35-52 % Mean Corpuscular Volume 90 80-99 FL Mean Corpuscular Hemoglobin 30 25-34 PG Mean Corpuscular Hemoglobin Concent 33 32-36 G/DL Red Cell Distribution Width 12.7 10.0-14.5 % Platelet Count 335 130-400 10^3/uL Mean Platelet Volume 10.7 H 7.4-10.4 FL Neutrophils (%) (Auto) 76 H 42-75 % Lymphocytes (%) (Auto) 13 12-44 % Monocytes (%) (Auto) 6 0-12 % Eosinophils (%) (Auto) 5 0-10 % Basophils (%) (Auto) 0 0-10 % Neutrophils # (Auto) 8.5 H 1.8-7.8 X 10^3 Lymphocytes # (Auto) 1.5 1.0-4.0 X 10^3 Monocytes # (Auto) 0.7 0.0-1.0 X 10^3 Eosinophils # (Auto) 0.6 H 0.0-0.3 10^3/uL Basophils # (Auto) 0.0 0.0-0.1 10^3/uL Urine Color YELLOW Urine Clarity CLEAR Urine pH 5 5-9 Urine Specific [facility] 1.020 1.016-1.022 Urine Protein NEGATIVE NEGATIVE Urine Glucose (UA) NEGATIVE NEGATIVE Urine Ketones NEGATIVE NEGATIVE Urine Nitrite NEGATIVE NEGATIVE Urine Bilirubin NEGATIVE NEGATIVE Urine Urobilinogen NORMAL NORMAL MG/DL Urine Leukocyte Esterase 1+ H NEGATIVE Urine RBC (Auto) 2+ H NEGATIVE Urine RBC RARE /HPF Urine WBC RARE /HPF Urine Squamous Epithelial Cells 2-5 /HPF Urine Crystals NONE /LPF Urine Bacteria NEGATIVE /HPF Urine Casts NONE /LPF Urine Mucus NEGATIVE /LPF Urine Culture Indicated NO Sodium Level 140 135-145 MMOL/L Potassium Level 4.9 3.6-5.0 MMOL/L Chloride Level 108 H 98-107 MMOL/L Carbon Dioxide Level 23 21-32 MMOL/L Anion Gap 9 5-14 MMOL/L Blood Urea Nitrogen 11 7-18 MG/DL Creatinine 0.72 0.60-1.30 MG/DL Estimat Glomerular Filtration Rate > 60 BUN/Creatinine Ratio 15 Glucose Level 88 70-105 MG/DL Calcium Level 10.3 H 8.5-10.1 MG/DL Corrected Calcium 8.5-10.1 MG/DL Total Bilirubin 0.5 0.1-1.0 MG/DL Aspartate Amino Transf (AST/SGOT) 29 5-34 U/L Alanine Aminotransferase (ALT/SGPT) 36 0-55 U/L Alkaline Phosphatase 79 40-136 U/L Total Protein 8.3 H 6.4-8.2 GM/DL Albumin 4.7 H 3.2-4.5 GM/DL Lipase 18 8-78 U/L My Orders Orders - CORNELIO CORDERO MD Cbc With Automated Diff (03/12/19:) Comprehensive Metabolic Panel (03/12/19:) Ua Culture If Indicated (03/12/19:) Ct Abdomen/Pelvis Wo (03/12/19:) Chest 1 View, Ap/Pa Only (03/12/19:) Lipase (7/15/19 09:23) Ns Iv 1000 Ml (Sodium Chloride 0.9%) (03/12/19 09:30) Promethazine Injection (Phenergan Injec (03/12/19 09:30) Fentanyl Injection (Sublimaze Injection (03/12/19 09:30) Medications Given in ED Current Medications Medications Dose Ordered Sig/Amelie Route Start Time Stop Time Status Last Admin Dose Admin Fentanyl Citrate 50 mcg ONCE ONCE IVP 03/12/19 09:30 03/12/19 09:31 DC 03/12/19 10:09 50 MCG Promethazine HCl 25 mg ONCE ONCE IVP 03/12/19 09:30 03/12/19 09:31 DC 03/12/19 10:09 25 MG Vital Signs/I&O 03/12/19 03/12/19 09:11 10:09 Temp 98.5 98.5 Pulse 90 Resp 22 B/P (MAP) 159/120 (133) Pulse Ox 99 O2 Delivery Room Air Blood Pressure Mean: 133 Progress Progress Note : Time: 11:35 Progress Note Patient's workup in the emergency department demonstrated unremarkable CT of the abdomen and pelvis. The patient's laboratory evaluation was consistent with an early UTI. No other significant findings were appreciated. Patient was much improved with IV fluids and fentanyl. She was sleeping quietly in the emergency department to completion of her evaluation. I discussed findings with patient and family. I asked patient to return to emergency department if she has further problems or questions. I should follow closely with her care tomorrow. I placed her on Bactrim DS for her urinary tract infection. Departure Impression Primary Impression: Abdominal pain Qualified Codes: R10.84 - Generalized abdominal pain Additional Impression: UTI (urinary tract infection) Qualified Codes: N30.00 - Acute cystitis without hematuria Disposition: HOME, SELF-CARE Condition: Improved Departure-Patient Inst. Decision time for Depature: 11:37 Referrals: NO,LOCAL PHYSICIAN (PCP) Primary Care Physician Patient Instructions: Acute Abdomen (Belly Pain) Add. Discharge Instructions: Bactrim DS as prescribed. Close follow-up. Health tomorrow. Return for any problems or questions. All discharge instructions reviewed with patient and/or family. Voiced understanding. Scripts Sulfamethoxazole/Trimethoprim (Bactrim Ds Tablet) 1 Each Tablet 1 EACH PO BID, #10 TAB Prov: CORNELIO CORDERO MD 03/12/19 CORNELIO CORDERO MD Mar 12, 2019 09:36
[2019-03-12 10:08] LABS: BASOPHILS % (AUTO) 0 % (0-10); EOSINOPHILS # (AUTO) 0.6 10^3/uL (0.0-0.3); EOSINOPHILS % (AUTO) 5 % (0-10); HEMATOCRIT 47 % (35-52); HEMOGLOBIN 15.6 G/DL (11.5-16.0); LYMPHOCYTES # (AUTO) 1.5 X 10^3 (1.0-4.0); LYMPHOCYTES % (AUTO) 13 % (12-44); MEAN CORPUSCULAR HEMOGLOBIN 30 PG (25-34); MEAN CORPUSCULAR HGB CONC 33 G/DL (32-36); MEAN CORPUSCULAR VOLUME 90 FL (80-99); MEAN PLATELET VOLUME 10.7 FL (7.4-10.4); MONOCYTES # (AUTO) 0.7 X 10^3 (0.0-1.0); MONOCYTES % (AUTO) 6 % (0-12); NEUTROPHILS # (AUTO) 8.5 X 10^3 (1.8-7.8); NEUTROPHILS % (AUTO) 76 % (42-75); PLATELET COUNT 335 10^3/uL (130-400); RED CELL DISTRIBUTION WIDTH 12.7 % (10.0-14.5); WHITE BLOOD COUNT 11.3 10^3/uL (4.3-11.0)
[2019-03-12 10:09] LABS: BILIRUBIN,URINE NEGATIVE (NEGATIVE); CLARITY,URINE CLEAR; COLOR,URINE YELLOW; GLUCOSE, URINE (UA) NEGATIVE (NEGATIVE); KETONES,URINE NEGATIVE (NEGATIVE); LEUKOCYTE ESTERASE ,URINE 1+ (NEGATIVE); NITRITE,URINE NEGATIVE (NEGATIVE); PH,URINE 5 (5-9); PROTEIN,URINE NEGATIVE (NEGATIVE); UROBILINOGEN,URINE NORMAL (NORMAL)
[2019-03-12 10:29] LABS: BACTERIA,URINE NEGATIVE /HPF; RBC,URINE RARE /HPF; WBC,URINE RARE /HPF
[2019-03-12 10:38] LABS: ALANINE AMINOTRANSFERASE 36 U/L (0-55); ALBUMIN 4.7 GM/DL (3.2-4.5); ALKALINE PHOSPHATASE 79 U/L (40-136); BILIRUBIN,TOTAL 0.5 MG/DL (0.1-1.0); BUN/CREATININE RATIO 15; CALCIUM 10.3 MG/DL (8.5-10.1); CARBON DIOXIDE 23 MMOL/L (21-32); CHLORIDE 108 MMOL/L (98-107); CREATININE SERUM 0.72 MG/DL (0.60-1.30); GFR ESTIMATED > 60; GLUCOSE 88 MG/DL (70-105); LIPASE 18 U/L (8-78); POTASSIUM 4.9 MMOL/L (3.6-5.0); SODIUM 140 MMOL/L (135-145); TOTAL PROTEIN 8.3 GM/DL (6.4-8.2)
--- NOTE | 2019-03-12 10:53 | Diagnostic Imaging Report ---
INDICATION: Nausea, vomiting diarrhea for 3 days as well as fever. TIME OF EXAM: 10:37 AM Comparison is made with prior chest from 03/06/2013. FINDINGS: The heart size is normal. The pulmonary vascularity is unremarkable. The lungs are clear. No infiltrate, effusion or pneumothorax is detected. IMPRESSION: No acute cardiopulmonary process is detected. Dictated by: Dictated on workstation # [id number]
--- NOTE | 2019-03-12 11:04 | Diagnostic Imaging Report ---
PROCEDURE: CT abdomen and pelvis without contrast. TECHNIQUE: Multiple contiguous axial images were obtained through the abdomen and pelvis without the use of intravenous contrast. Auto Exposure Controls were utilized during the CT exam to meet ALARA standards for radiation dose reduction. INDICATION: Abdominal pain with nausea and vomiting. Correlation is made with prior CT from 02/20/2015. Lung bases are clear. No discrete liver mass is identified. Gallbladder surgically absent. No biliary duct dilatation is seen. The pancreas and spleen are unremarkable. No adrenal mass is detected. Tiny nonobstructing calculi are identified in both kidneys. There is no hydronephrosis. Distal ureters are obscured due to large amount of streak artifact from patient's bilateral hip prostheses. This significantly limits evaluation of the bladder. The aorta is non-aneurysmal. The bowel loops are normal caliber. The appendix appears unremarkable. No inflammatory changes are seen. No definite ascites is identified. IMPRESSION: Tiny bilateral nonobstructing renal calculi. No hydronephrosis is seen. No other significant abnormality is detected. Dictated by: Dictated on workstation # [id number]
[2019-03-12] MEDS ORDERED: SULF1TAB35 PO (11:39)
[2019-03-12 12:26] VITALS: BP 125/81
== END 2019-03-12 12:26 | disposition home or self-care (01) ==
LOC: EDUNIT# 08:53 → ER 08:54
DX: N39.0 Urinary tract infection, site not specified (principal); F41.9 Anxiety disorder, unspecified; F32.9 Major depressive disorder, single episode, unspecified; F17.210 Nicotine dependence, cigarettes, uncomplicated; Z87.19 Personal history of other diseases of the digestive system; Z88.8 Allergy status to other drugs, medicaments and biological substances; Z90.89 Acquired absence of other organs; Z98.51 Tubal ligation status; Z82.49 Family history of ischemic heart disease and other diseases of the circulatory system
CPT/HCPCS: 36415; 71045; 74176; 80053; 81000; 83690; 85025; 96361; 96374; 96375

== ENCOUNTER 2021-02-22 10:28 | Emergency (ER) | payer MEDICARE, MEDICAID ==
[2021-02-22 10:32] VITALS: BP 149/98
[2021-02-22 10:46] LABS: BACTERIA,URINE NEGATIVE /HPF; BILIRUBIN,URINE NEGATIVE (NEGATIVE); CLARITY,URINE CLEAR; COLOR,URINE YELLOW; GLUCOSE, URINE (UA) NEGATIVE (NEGATIVE); KETONES,URINE NEGATIVE (NEGATIVE); LEUKOCYTE ESTERASE ,URINE NEGATIVE (NEGATIVE); NITRITE,URINE NEGATIVE (NEGATIVE); PROTEIN,URINE NEGATIVE (NEGATIVE); RBC,URINE 0-2 /HPF
--- NOTE | 2021-02-22 10:58 | ED GU-Female ---
General Chief Complaint: Female Reproductive Stated Complaint: VAGINAL BLEEDING | CRAMPS | FEVER | HIGH BP History of Present Illness Date Seen by Provider: Feb 22, 2021 Time Seen by Provider: 10:40 Initial Comments 4-year-old female presents with vaginal bleeding, beginning last night suddenly. Last menstrual period of less than 1 month ago, she typically is very regular. Denies history of abnormal or irregular bleeding. States she is not as she has had a tubal. No history of uterine disease or fibroids. No recent illness, fever or chills. Positive abdominal cramping as well as cramping in her low back. States she went to 15 tampons since last evening till this morning. Allergies and Home Medications Allergies Coded Allergies: ondansetron HCl (Verified Allergy, Unknown, 02/20/15) HIVES/ ITCHING Home Medications Cephalexin Monohydrate 500 Mg Capsule, 1 EACH PO TID Prescribed by: LENNOX SCHAEFER on 02/23/15 1517 Doxycycline Hyclate 100 Mg Tablet, 100 MG PO BID Prescribed by: STEPHY BLOUNT on 11/21/18 1048 Hydrocodone/Acetaminophen 1 Each Tablet, 1 TAB PO Q4H Prescribed by: STEPHY BLOUNT on 11/21/18 1048 Ibuprofen 800 Mg Tablet, 800 MG PO BID PRN for PAIN, (Reported) Ibuprofen 800 Mg Tablet, 800 MG PO Q8H PRN for PAIN Prescribed by: STEPHY BLOUNT on 11/21/18 1048 Ibuprofen 800 Mg Tablet, 800 MG PO Q8H PRN for PAIN Prescribed by: INGRID HENSLEY on 02/22/21 1059 Lisinopril 20 Mg Tab, 20 MG PO DAILY, (Reported) Metoprolol Tartrate 50 Mg Tablet, 50 MG PO DAILY, (Reported) Phenazopyridine Hcl 200 Mg Tablet, 1 EACH PO TID PRN for PAIN Prescribed by: LENNOX SCHAEFER on 02/23/15 1517 Progesterone,Micronized 200 Mg Capsule, 200 MG PO DAILY Prescribed by: INGRID HENSLEY on 02/22/21 1059 Promethazine Hcl 25 Mg Tab, 1 TAB PO QID PRN for NAUSEA/VOMITING Prescribed by: CEZAR DURAND on 02/22/15 1140 Sertraline Hcl 100 Mg Tablet, 100 MG PO DAILY, (Reported) Sulfamethoxazole/Trimethoprim 1 Each Tablet, 1 EACH PO BID Prescribed by: STEPHY BLOUNT on 11/21/18 1048 Sulfamethoxazole/Trimethoprim 1 Each Tablet, 1 EACH PO BID Prescribed by: CORNELIO CORDERO MD on 03/12/19 1139 Sumatriptan Succinate 50 Mg Tablet, 50 MG PO PRN PRN for HEADACHE Prescribed by: SIMA LOPEZ on 10/08/13 1251 Zolpidem Tartrate 10 Mg Tablet, 10 MG PO HS, (Reported) [Oxycodone Hcl/Acetaminophen] 1 TAB TABLET, 1 TAB PO Q4H PRN for PAIN Prescribed by: CEZAR DURAND on 02/22/15 1140 Patient Home Medication List Home Medication List Reviewed: Yes Review of Systems Review of Systems Constitutional: No dizziness, No fever, No malaise, No weakness Respiratory: No cough, No short of breath Cardiovascular: No chest pain, No edema, No palpitations, No syncope Gastrointestinal: abdominal pain (cramping); No loss of appetite, No nausea, No vomiting Musculoskeletal: back pain (cramping); No joint swelling, No neck pain Skin: No change in color, No rash Past Bphkthj-Efkakw-Asfsoe Hx Past Med/Social Hx: Reviewed Nursing Past Med/Soc Hx Patient Social History Alcohol Use: Occasionally Uses Number of Drinks Today: AA Alcohol Beverage of Choice: Beer Drug of Choice: marijuana Smoking Status: Current Everyday Smoker Type Used: Cigarettes 2nd Hand Smoke Exposure: Yes Recent Hopitalizations: No Immunizations Up To Date Tetanus Booster (TDap): Less than 5yrs PED Vaccines UTD: Yes Date of Influenza Vaccine: Oct 08, 2013 Seasonal Allergies Seasonal Allergies: Yes Past Medical History Surgeries: Yes (bilateral hip surgery) Gallbladder, Orthopedic, Tonsillectomy, Tubal Ligation Respiratory: No Cardiac: Yes Hypertension Neurological: No Reproductive Disorders: No Female 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 Sexually Transmitted Disease: No HIV/AIDS: No Genitourinary: Yes Kidney Infection, UTI-Chronic Gastrointestinal: Yes Diverticulosis, Gall Bladder Disease Musculoskeletal: Yes (bilateral hip surgery- avascular necrosis) Fractures Endocrine: No HEENT: No Cancer: No Psychosocial: Yes Anxiety, Depression Integumentary: Yes (Hx of MRSA abscess) Blood Disorders: No Adverse Reaction/Blood Tranf: No Family Medical History Alcoholism 03 FATHER, Onset:Unknown Cancer 03 FATHER, Onset:50's - 60 03 MOTHER, Onset:Unknown Family history: Hypertension 03 MOTHER, Onset:40's - 50 No Pertinent Family Hx Physical Exam Vital Signs Vital Signs - First Documented 02/22/21 10:32 Temp 36.6 Pulse 95 Resp 18 B/P (MAP) 149/98 (115) Pulse Ox 100 Capillary Refill : Height, Weight, BMI Height: 5'0" Weight: 180lbs. 0.0oz. [id number]; 32.77 BMI Method:Stated General Appearance: WD/WN, no apparent distress Cardiovascular: regular rate, rhythm, no edema, no JVD Respiratory: chest non-tender, lungs clear, normal breath sounds, no respiratory distress, no accessory muscle use Gastrointestinal: normal bowel sounds, non tender, soft, no organomegaly, no pulsatile mass Back: normal inspection, no CVA tenderness, no vertebral tenderness Extremities: non-tender, no pedal edema Neurologic/Psychiatric: alert, normal mood/affect Skin: normal color, warm/dry Progress/Results/Core Measures Suspected Sepsis SIRS Temperature: Pulse: Respiratory Rate: Laboratory Tests 02/22/21 11:06: White Blood Count 11.0 Blood Pressure / Mean: Laboratory Tests 02/22/21 11:06: Platelet Count 379 Results/Orders Lab Results Laboratory Tests Test 02/22/21 10:32 02/22/21 11:06 Range/Units Urine Color YELLOW Urine Clarity CLEAR Urine pH 6.0 5-9 Urine Specific [place] 1.010 L 1.016-1.022 Urine Protein NEGATIVE NEGATIVE Urine Glucose (UA) NEGATIVE NEGATIVE Urine Ketones NEGATIVE NEGATIVE Urine Nitrite NEGATIVE NEGATIVE Urine Bilirubin NEGATIVE NEGATIVE Urine Urobilinogen 0.2 < = 1.0 MG/DL Urine Leukocyte Esterase NEGATIVE NEGATIVE Urine RBC (Auto) 2+ H NEGATIVE Urine RBC 0-2 /HPF Urine WBC NONE /HPF Urine Squamous Epithelial Cells 2-5 /HPF Urine Crystals NONE /LPF Urine Bacteria NEGATIVE /HPF Urine Casts NONE /LPF Urine Mucus NEGATIVE /LPF Urine Culture Indicated NO Urine Test NEGATIVE NEGATIVE White Blood Count 11.0 4.3-11.0 10^3/uL Red Blood Count 4.65 4.35-5.85 10^6/uL Hemoglobin 14.1 11.5-16.0 G/DL Hematocrit 41 35-52 % Mean Corpuscular Volume 88 80-99 FL Mean Corpuscular Hemoglobin 30 25-34 PG Mean Corpuscular Hemoglobin Concent 35 32-36 G/DL Red Cell Distribution Width 12.4 10.0-14.5 % Platelet Count 379 130-400 10^3/uL Mean Platelet Volume 10.0 7.4-10.4 FL Immature Granulocyte % (Auto) 0 % Neutrophils (%) (Auto) 70 42-75 % Lymphocytes (%) (Auto) 21 12-44 % Monocytes (%) (Auto) 5 0-12 % Eosinophils (%) (Auto) 3 0-10 % Basophils (%) (Auto) 1 0-10 % Neutrophils # (Auto) 7.6 1.8-7.8 X 10^3 Lymphocytes # (Auto) 2.3 1.0-4.0 X 10^3 Monocytes # (Auto) 0.6 0.0-1.0 X 10^3 Eosinophils # (Auto) 0.4 H 0.0-0.3 10^3/uL Basophils # (Auto) 0.1 0.0-0.1 10^3/uL Immature Granulocyte # (Auto) 0.0 0.0-0.1 10^3/uL My Orders Orders - INGRID HENSLEY DO Urinalysis (02/22/21 10:34) Hcg,Qualitative Urine (02/22/21 10:34) Cbc With Automated Diff (02/22/21 10:52) Ketorolac Injection (Toradol Injection) (02/22/21 11:00) Medications Given in ED Current Medications Medications Dose Ordered Sig/Amelie Route Start Time Stop Time Status Last Admin Dose Admin Ketorolac Tromethamine 60 mg ONCE ONCE IM 02/22/21 11:00 02/22/21 11:01 DC 02/22/21 10:59 60 MG Vital Signs/I&O 02/22/21 10:32 Temp 36.6 Pulse 95 Resp 18 B/P (MAP) 149/98 (115) Pulse Ox 100 Capillary Refill : Departure Impression Primary Impression: DUB (dysfunctional uterine bleeding) Disposition: 01 HOME, SELF-CARE Condition: Stable Departure-Patient Inst. Decision time for Depature: 11:18 Referrals: NOY SHARMA MD [facility]/ADYA NO,LOCAL PHYSICIAN (PCP) Primary Care Physician Patient Instructions: Heavy Periods (DC) Add. Discharge Instructions: Call to establish a new PCP for re- evaluation in 2 to 3 days. Return to the nearest ER if unable to be seen and you are getting worse. All discharge instructions reviewed with patient and/or family. Voiced understanding. Scripts Ibuprofen (Ibuprofen) 800 Mg Tablet 800 MG PO Q8H PRN for PAIN, #30 TAB 0 Refills Prov: INGRID HENSLEY DO 02/22/21 Progesterone,Micronized (Progesterone) 200 Mg Capsule 200 MG PO DAILY, #10 CAP Prov: INGRID HENSLEY DO 02/22/21 INGRID HENSLEY DO Feb 22, 2021 10:58
[2021-02-22] MEDS ORDERED: PROG200C10 PO (10:59)
[2021-02-22] MEDS ORDERED: IBUP-1780 PO (10:59)
[2021-02-22] MEDS ORDERED: KETOROLAC 60 MG/2 ML VIAL IM ONE (11:00)
[2021-02-22 11:12] LABS: BASOPHILS # (AUTO) 0.1 10^3/uL (0.0-0.1); BASOPHILS % (AUTO) 1 % (0-10); EOSINOPHILS # (AUTO) 0.4 10^3/uL (0.0-0.3); EOSINOPHILS % (AUTO) 3 % (0-10); HEMATOCRIT 41 % (35-52); HEMOGLOBIN 14.1 G/DL (11.5-16.0); LYMPHOCYTES # (AUTO) 2.3 X 10^3 (1.0-4.0); LYMPHOCYTES % (AUTO) 21 % (12-44); MEAN CORPUSCULAR HEMOGLOBIN 30 PG (25-34); MEAN CORPUSCULAR HGB CONC 35 G/DL (32-36); MEAN CORPUSCULAR VOLUME 88 FL (80-99); MONOCYTES # (AUTO) 0.6 X 10^3 (0.0-1.0); MONOCYTES % (AUTO) 5 % (0-12); NEUTROPHILS # (AUTO) 7.6 X 10^3 (1.8-7.8); NEUTROPHILS % (AUTO) 70 % (42-75); PLATELET COUNT 379 10^3/uL (130-400)
== END 2021-02-22 11:21 | disposition home or self-care (01) ==
LOC: EDUNIT# 10:28 → ER FS 10:30
DX: N93.8 Other specified abnormal uterine and vaginal bleeding (principal); I10 Essential (primary) hypertension; F41.9 Anxiety disorder, unspecified; F32.9 Major depressive disorder, single episode, unspecified; F17.210 Nicotine dependence, cigarettes, uncomplicated; Z79.899 Other long term (current) drug therapy
CPT/HCPCS: 36415; 81000; 84703; 85025

== ENCOUNTER 2022-01-22 10:36 | Emergency (ER) | payer MEDICARE, MEDICAID ==
[~2022-01-22] VITALS: Ht 152.4 cm; Wt 80.7 kg
[~2022-01-22 10:36] MED LIST changes: +PROG200C10 PO; -SULF1TAB35 PO
--- NOTE | 2022-01-22 10:49 | ED GU-Female ---
General Chief Complaint: Foreign Body Stated Complaint: VAGINAL FOREIGN OBJECT Source: patient History of Present Illness Date Seen by Provider: January 22, 2022 Time Seen by Provider: 10:41 Initial Comments 41-year-old female presenting with concerns that she may have a tampon stuck within her vagina. She had been using a different type of tampon that was sm aller and shorter than her usual Tampax. She states that the string had unraveled on the smaller tampons and she was concerned that maybe she had not gotten them all out. She had started to have discharge and odor as well as some bleeding and spotting. She has been having some irregular bleeding in the last few months. She denies pain or burning with urination. She denies any new sexual partners. She has no fever, chills, abdominal pain, diarrhea, nausea, vomiting, headache. Timing/Duration: other (2 to 3 days) Severity/Quality: moderate, aching, throbbing Location: vaginal Radiation: vaginal Activities at Onset: none Prior Genitourinary Problems: none Sexual Zap History: less than 2 months ago, single partner Associated Symptoms: No abdominal pain, No diaphoresis, No dysuria, No fever/chills, No loss of bladder control, No lower back pain, No lumps, No mass, No nausea/vomiting, No nocturia, No polyuria, No swelling, No syncope, No urinary frequency Allergies and Home Medications Allergies Coded Allergies: ondansetron HCl (Verified Allergy, Unknown, 02/20/15) HIVES/ ITCHING Patient Home Medication List Home Medication List Reviewed: Yes Cephalexin Monohydrate (Cephalexin) 500 Mg Capsule, 1 EACH PO TID Prescribed by: LENNOX SCHAEFER on 02/23/15 1517 Doxycycline Hyclate (Doxycycline Hyclate) 100 Mg Tablet, 100 MG PO BID Prescribed by: STEPHY BLOUNT on 11/21/18 1048 Hydrocodone/Acetaminophen ([place] 7.5-325 Tablet) 1 Each Tablet, 1 TAB PO Q4H Prescribed by: STEPHY BLOUNT on 11/21/18 1048 Ibuprofen (Ibuprofen) 800 Mg Tablet, 800 MG PO BID PRN for PAIN, (Reported) Entered as Reported by: CHRISTIAN SLOAN on 02/21/15 0814 Ibuprofen (Ibuprofen) 800 Mg Tablet, 800 MG PO Q8H PRN for PAIN Prescribed by: STEPHY BLOUNT on 11/21/18 1048 Ibuprofen (Ibuprofen) 800 Mg Tablet, 800 MG PO Q8H PRN for PAIN Prescribed by: INGRID HENSLEY on 02/22/21 1059 Lisinopril (Zestril) 20 Mg Tab, 20 MG PO DAILY, (Reported) Entered as Reported by: AGA ABURTO on 08/23/13 0138 Metoprolol Tartrate (Metoprolol Tartrate) 50 Mg Tablet, 50 MG PO DAILY, (Reported) Entered as Reported by: CHRISTIAN SLOAN on 02/21/15 0814 Metronidazole (Metronidazole) 500 Mg Tablet, 500 MG PO BID Prescribed by: LI IRAHETA on 01/22/22 1129 Phenazopyridine Hcl (Pyridium) 200 Mg Tablet, 1 EACH PO TID PRN for PAIN Prescribed by: LENNOX SCHAEFER on 02/23/15 1517 Progesterone,Micronized (Progesterone) 200 Mg Capsule, 200 MG PO DAILY Prescribed by: INGRID HENSLEY on 02/22/21 1059 Promethazine Hcl (Phenergan Tab) 25 Mg Tab, 1 TAB PO QID PRN for NAUSEA/VOMITING Prescribed by: CEZAR DURAND on 02/22/15 1140 Sertraline Hcl (Sertraline Hcl) 100 Mg Tablet, 100 MG PO DAILY, (Reported) Entered as Reported by: CHRISTIAN SLOAN on 02/21/15 0839 Sulfamethoxazole/Trimethoprim (Bactrim Ds Tablet) 1 Each Tablet, 1 EACH PO BID Prescribed by: STEPHY BLOUNT on 11/21/18 1048 Sulfamethoxazole/Trimethoprim (Bactrim Ds Tablet) 1 Each Tablet, 1 EACH PO BID Prescribed by: CORNELIO CORDERO MD on 03/12/19 1139 Sumatriptan Succinate (Imitrex) 50 Mg Tablet, 50 MG PO PRN PRN for HEADACHE Prescribed by: SIMA LOPEZ on 10/08/13 1251 Zolpidem Tartrate (Zolpidem Tartrate) 10 Mg Tablet, 10 MG PO HS, (Reported) Entered as Reported by: CHRISTIAN SLOAN on 02/21/15 0814 [Oxycodone Hcl/Acetaminophen] 1 TAB TABLET, 1 TAB PO Q4H PRN for PAIN Prescribed by: CEZAR DURAND on 02/22/15 1140 Review of Systems Review of Systems Constitutional: No chills, No fever EENTM: no symptoms reported Respiratory: no symptoms reported Cardiovascular: no symptoms reported Gastrointestinal: no symptoms reported Genitourinary: see HPI Musculoskeletal: no symptoms reported Skin: no symptoms reported Psychiatric/Neurological: No Symptoms Reported Endocrine: No Symptoms Reported Hematologic/Lymphatic: No Symptoms Reported Past Wljrkxa-Cjfxwv-Gxbmfg Hx Patient Social History Tobacco Use?: Yes Immunizations Up To Date Tetanus Booster (TDap): Less than 5yrs PED Vaccines UTD: Yes Seasonal Allergies Seasonal Allergies: Yes Past Medical History Surgeries: Yes (bilateral hip surgery) Gallbladder, Orthopedic, Tonsillectomy, Tubal Ligation Respiratory: No Cardiac: Yes Hypertension Neurological: No Reproductive Disorders: No Female Reproductive Disorders: 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 Sexually Transmitted Disease: No HIV/AIDS: No Genitourinary: Yes Kidney Infection, UTI-Chronic Gastrointestinal: Yes Diverticulosis, Gall Bladder Disease Musculoskeletal: Yes (bilateral hip surgery- avascular necrosis) Fractures Endocrine: No HEENT: No Cancer: No Psychosocial: Yes Anxiety, Depression Integumentary: Yes (Hx of MRSA abscess) Blood Disorders: No Adverse Reaction/Blood Tranf: No Family Medical History Alcoholism 03 FATHER, Onset:Unknown Cancer 03 FATHER, Onset:50's - 60 03 MOTHER, Onset:Unknown Family history: Hypertension 03 MOTHER, Onset:40's - 50 No Pertinent Family Hx Physical Exam Vital Signs Vital Signs - First Documented 01/22/22 10:40 Temp 35.6 Pulse 85 Resp 20 B/P (MAP) 163/93 (116) Pulse Ox 100 O2 Delivery Room Air Capillary Refill : Height, Weight, BMI Height: 5'0" Weight: 180lbs. 0.0oz. [id number]; 32.77 BMI Method:Stated General Appearance: WD/WN, no apparent distress HEENT: PERRL/EOMI, pharynx normal Neck: non-tender, full range of motion, supple, normal inspection Cardiovascular: normal peripheral pulses Gastrointestinal: normal bowel sounds, non tender, soft, no pulsatile mass Pelvic: normal external exam, normal adnexa, no cerv. motion tender, no masses, vaginal bleeding (Trace amount of blood present in the vagina. No foreign body visualized with pelvic exam or palpated with bimanual exam) Extremities: normal range of motion, non-tender, normal capillary refill Neurologic/Psychiatric: alert, oriented x 3 Skin: normal color, warm/dry Progress/Results/Core Measures Suspected Sepsis SIRS Temperature: Pulse: Respiratory Rate: Blood Pressure / Mean: Results/Orders Lab Results Laboratory Tests Test 01/22/22 11:00 Range/Units Micro Results Microbiology 01/22/22 Wet Prep - Final, Complete My Orders Orders - LI IRAHETA MD Wet Prep (01/22/22 10:44) Neisseria Gonorrhea Swab (01/22/22 10:44) Chlamydia Trachomatis Swab (01/22/22 10:44) Vital Signs/I&O 01/22/22 01/22/22 10:40 11:34 Temp 35.6 35.6 Pulse 85 85 Resp 20 20 B/P (MAP) 163/93 (116) 163/93 Pulse Ox 100 100 O2 Delivery Room Air Room Air Capillary Refill : Progress Note #1: Progress Note Pelvic exam performed and specimen obtained for wet mount and GC chlamydia. No foreign body was visualized with pelvic speculum exam or palpated with bimanual exam. Progress Note #2: Progress Note Quick note came back showing clue cells consistent with bacterial vaginosis which would help explain her vaginal odor and discharge. Counseled to follow-up with Dr. Leyva for her irregular bleeding. Departure Impression Primary Impression: Bacterial vaginosis Additional Impression: Irregular menstrual bleeding Disposition: 01 HOME, SELF-CARE Condition: Stable Departure-Patient Inst. Decision time for Depature: 11:25 Referrals: NO,LOCAL PHYSICIAN (PCP) Primary Care Physician ELVIRA LEYVA DO Patient Instructions: Bacterial Vaginosis ED, Bleeding Between Periods Add. Discharge Instructions: Follow-up with Dr. Levya or sales operations assistant of your choice about your irregular bleeding. For the odor and discharge you have bacterial vaginosis. This is treated by taking metronidazole or Flagyl. Make sure that you are not drinking any alcohol while taking this antibiotic as it will make you very nauseated and sick. All discharge instructions reviewed with patient and/or family. Voiced understanding. Scripts Metronidazole (Metronidazole) 500 Mg Tablet 500 MG PO BID for bacterial vaginosis for 7 Days, #14 TAB 0 Refills Prov: LI IRAHETA MD 01/22/22 LI IRAHETA MD January 22, 2022 10:48
[2022-01-22] MEDS ORDERED: METR-145 PO (11:29)
[2022-01-22 11:34] VITALS: BP 163/93
== END 2022-01-22 11:30 | disposition home or self-care (01) ==
LOC: EDUNIT# 10:36 → ER FS 10:37
DX: N76.0 Acute vaginitis (principal); B96.89 Other specified bacterial agents as the cause of diseases classified elsewhere; N92.6 Irregular menstruation, unspecified
CPT/HCPCS: 36415; 87210; 87491; 87591; 99284